=== PATIENT | female | born 1975 | race Caucasian/White ===

== ENCOUNTER 2018-05-07 14:43 | Outpatient (CLI) | payer OTHER ==
[~2018-05-07 14:43] MED LIST: SEROQUEL200 MG; SYNTHROID112 MCG PO; SYNTHROID125 MCG PO
== END 2018-05-07 14:51 | disposition home or self-care (01) ==
LOC: RAD 14:43
DX: M46.27 Osteomyelitis of vertebra, lumbosacral region (principal)